=== PATIENT | male | born 1975 | race Caucasian/White ===

== ENCOUNTER 2024-02-09 10:20 | Emergency (ER) | payer BC, SELFPAY ==
[2024-02-09 10:21] VITALS: BP 125/86; PULSE 70; RESP 14; TEMP 36.2; O2SAT 100; BMI 29.9
--- NOTE | 2024-02-09 10:46 | EDS_ITS ---
HPI History of Present Illness Chief Complaint: Lower Extremity Injury Informant: patient and spouse/S.O. Narrative Narrative: 49-year-old male presenting to the emergency room with left calf pain. Patient states that a little over a week ago he went to get up out of a chair he felt a sharp pain in his left medial calf. He notes he had some immediate discoloration of the skin was purplish red. He said generalized soreness to the touch since. He notes no pain with dorsiflexion or plantarflexion inversion or eversion of the foot. Patient states he has had some varicose veins in this area in the past. He denies any leg or foot swelling distally. He states he does do a lot of travel for work. He is otherwise not treated for any pertinent medical problems. PFSH PFSH Home Medications ?Medication ?Instructions ?Recorded ?Last Taken ?Type NK 02/09/24 Unknown History Allergy/AdvReac Type Severity Reaction Status Date / Time Penicillins Allergy Unknown Verified 02/09/24 10:23 Social History Smoking Status: Never smoker ROS ROS ED Constitutional Constitutional ED: Denies chills, fever(s) or weight loss Eyes Eyes: Denies change in vision or diplopia ENT ENT ED: Denies ear pain, rhinorrhea or sore throat Cardiovascular Cardiovascular: Denies chest pain, orthopnea, palpitations or racing heartbeat Respiratory/Chest Respiratory/Chest: Denies cough, dyspnea or orthopnea Gastrointestinal Gastrointestinal: Denies abdominal pain, diarrhea, nausea or vomiting Genitourinary Genitourinary ED: Denies dysuria, hematuria or urinary frequency Musculoskeletal Musculoskeletal: Reports other Details: Left medial calf pain ; Denies arthralgias or myalgias Integumentary Denies abscess or rash Neurologic Neurologic: Denies headache(s) or weakness Psychiatric Psychiatric: Denies anxiety, depression, suicidal ideation or suicidal thoughts Endocrine Endocrinology: Denies polydipsia, polyphagia or polyuria Allergic/Immunologic Allergic/Immunologic ED: Denies mouth swelling, tongue swelling or urticaria EXAM Physical Exam Const Vital Signs: 02/09/24 10:21 02/09/24 12:31 Temperature 97.1 F L 98.3 F Temperature Source Temporal Pulse Rate 70 76 Respiratory Rate 14 18 Blood Pressure 125/86 H 129/65 H Blood Pressure Mean 99 86 Pulse Ox 100 100 Oxygen Delivery Method Room Air Positive well nourished and well developed General Appearance ED: well developed HEENT Reports normocephalic, head/scalp atraumatic and moist mucous membranes Eyes PERRL and EOMs intact bilaterally Neck no lymphadenopathy, supple and no JVD Resp normal respiratory effort and clear to auscultation bilaterally Cardio regular rate, regular rhythm and no murmurs GI normal to inspection, nondistended, normoactive bowel sounds and non-tender Palpation: soft Back/Spine no CVA tenderness and normal ROM Extremity Extremity Narrative: Patient has tenderness over the proximal to mid medial calf. There appears to be a palpable cord. There is some slight skin discoloration that appears to be a fading purple to slightly red. Functionally the patient appears intact without deficits. I do not appreciate leg swelling or distal leg and foot discoloration. General Extremety ED: Negative for edema General Extremity: Negative for edema Neuro oriented x3 and CN's II-XII intact bilaterally Sensorium / Orientation: alert Motor Exam: strength 5/5 throughout Psych mental status grossly normal Mood & Affect: Negative for depressed or tearful Skin no rashes or lesions noted and no wounds Skin Narrative: The leg appears otherwise grossly normal color. No blue blue leg or rhubarb. Strong dorsalis pedis posterior tibial pulses. Excellent cap refill of toes. MDM MDM MDM Narrative Medical decision making narrative: Differential diagnosis includes superficial thrombophlebitis, deep vein thrombosis, muscle injury, cellulitis, Bedside ultrasound performed by this physician demonstrates what appears to be superficial thrombosis of the saphenous vein. It does not extend past the knee. Formal read: Popliteal vein is compressible spontaneous phasic competent demonstrates normal augmentation. Noted acute superficial vein thrombosis is noted in the greater saphenous vein dilated noncompressible from the mid calf to just below the knee. Acute superficial vein thrombosis noted in the super saphenous vein which is dilated noncompressible up to the popliteal vein there is no extension into the deep system. Acute superficial vein thrombosis is noted in the varicose veins in the mid calf. Also dilated and noncompressible. I spoke with the patient regarding the above findings. He is otherwise a very healthy individual. There is no peripheral edema. There is no extension into the deep system. Symptoms are greater than 5 cm away from common femoral. I will have him use warm compress compression socks aspirin/anti-inflammatories. Should his symptomatology change in the nature of his pain or swelling he should have repeat duplex ultrasound to see if there is extension at that time. Patient notes understanding of plan. History & Record Review Discussion w/independent historian: Patient and Significant other Discharge Plan Triage Chief Complaint: Lower Extremity Injury ED Provider: Ean Mccracken Dx/Rx/DC Orders Clinical Impression: Superficial thrombophlebitis of left leg Instructions: ED Thrombophlebitis, Superficial Prescriptions: No Action NK Primary Care Provider: Care Physician,No Primary Referrals: Cuba Mullen MD [Non-Staff] - 1 Week Print Language: Kosovan Disposition Disposition: Home, Self Care Discharge Date/Time: 02/09/24 12:10
--- NOTE | 2024-02-09 10:46 | VDLE_ITS ---
Reason For Study: pain RIGHT LEFT CFV is compressible, spontaneous, phasic, CFV is compressible, spontaneous, phasic, competent and demonstrates normal competent, and demonstrates normal augmentation. augmentation. Procedure FV is compressible, spontaneous, phasic, This is a venous duplex using B-mode, color competent and demonstrates normal flow and spectral Doppler. augmentation. Exam performed portable in ED. POP V is compressible, spontaneous, phasic, The exam was diagnostic. competent and demonstrates normal A preliminary report was called and/or faxed augmentation. to [facility]. T/P Trunk is compressible. PTV is compressible. LT PerV is compressible. Acute superficial vein thrombosis is noted in the GSV. It is dilated and NONCOMPRESSIBLE from the mid calf to just below the knee. Acute superficial vein thrombosis is noted in the SSV. It is dilated and NONCOMPRESSIBLE up to the POP V. No extension into the deep system. Acute superficial vein thrombosis is noted in the Varicose Veins in the mid calf. They are dilated and NONCOMPRESSIBLE. VL/Venous Duplex US, Unilateral Interpretation Summary Acute superficial vein thrombosis is noted in the left great saphenous vein in the calf, small saphenous vein, and varicosities in the mid calf. Ordering Physician: Ean Mccracken Performed By: Que Mckeon RVT
[2024-02-09 12:31] VITALS: BP 129/65; PULSE 76; RESP 18; TEMP 36.8; O2SAT 100
== END 2024-02-09 12:10 | disposition home or self-care (01) ==
PROVIDERS: Emergency Provider Emergency Medicine; Visit Provider Emergency Medicine
DX: I80.02 Phlebitis and thrombophlebitis of superficial vessels of left lower extremity (principal)
CPT/HCPCS: 93971; 99282